=== PATIENT | female | born 1970 | race Two or more races ===

== ENCOUNTER 2021-09-25 14:31 | Emergency (ER) | payer MEDICAID, OTHER ==
[~2021-09-25] VITALS: Ht 162.6 cm; Wt 95.3 kg
[2021-09-25 15:24] VITALS: BP 127/70
[2021-09-25] MEDS ORDERED: IBUP800T27 PO (15:43)
[2021-09-25] MEDS ORDERED: IBUPROFEN 800 MG TAB PO ONE (15:45)
== END 2021-09-25 16:00 | disposition home or self-care (01) ==
LOC: ER 14:31
DX: D17.1 Benign lipomatous neoplasm of skin and subcutaneous tissue of trunk (principal); E11.9 Type 2 diabetes mellitus without complications; Z79.1 Long term (current) use of non-steroidal anti-inflammatories (NSAID); Z88.8 Allergy status to other drugs, medicaments and biological substances
CPT/HCPCS: 71046

== ENCOUNTER 2021-10-13 15:33 | Inpatient (IN) | payer MEDICAID ==
[~2021-10-13] VITALS: Ht 30.5 cm; Wt 97.6 kg
[~2021-10-13 15:33] MED LIST: IBUP800T27 PO
[2021-10-13 15:45] VITALS: BP 132/85
[2021-10-13] MEDS ORDERED: IBUP800T27 PO (16:13)
[2021-10-13] MEDS ORDERED: METF-370 PO (16:13)
[2021-10-13] MEDS ORDERED: TRIH2TAB3 PO (16:13)
[2021-10-13] MEDS ORDERED: PRAM0.12 PO ×3 (16:13→18:19)
[2021-10-13] MEDS ORDERED: DOCUSATE SOD 100 MG CAP PO PRN (16:15)
[2021-10-13] MEDS ORDERED: ACETAMINOPHEN 325 MG TAB PO PRN (16:15)
[2021-10-13] MEDS ORDERED: HYDROcodone-ACET 5/325MG TAB PO PRN (16:15)
[2021-10-13] MEDS ORDERED: ONDANSETRON HCL 4 MG/2 ML VIAL IV PRN (16:15)
[2021-10-13] MEDS ORDERED: DEXTROSE (50%) 50ML SYRG IV PRN (16:15)
[2021-10-13] MEDS ORDERED: LORazepam 0.5 MG TAB PO PRN (16:15)
[2021-10-13] MEDS ORDERED: ALUM & MAG HYDROX-SIMETH LIQ(MAALOX) 30 ML PO PRN (16:15)
[2021-10-13] MEDS ORDERED: HYDROmorphone HCL 2 MG/ML VL/or syr IV PRN (16:15)
[2021-10-13 17:00] VITALS: BP 132/82
[2021-10-13] MEDS: ACCU-CHEK COMFORT CURVE STRIP VI SCH ×2 (17:05→21:11)
[2021-10-13] MEDS: InsuLIN REG 1unit/0.01ml Soln (100units/ml) SC SCH ×2 (17:10→21:12)
[2021-10-13 18:23] LABS: Basophils # (auto) 0.2 10 ^3/uL (0-0.2); Basophils % (auto) 1.6 % (0.0-2.0); Eosinophils # (auto) 0.1 10 ^3/uL (0-0.8); Hematocrit 40.7 % (36.0-46.0); Hemoglobin 13.5 g/dL (12.2-16.2); Lymphocytes # (auto) 2.8 10 ^3/uL (0.4-5.4); Lymphocytes % (auto) 29.1 % (10.0-50.0); Mean Corpuscular Hemoglobin 29.4 pg (28.0-32.0); Mean Corpuscular Hgb Conc. 33.2 g/dL (32.0-36.0); Mean Corpuscular Volume 88.6 fL (80.0-100.0); Monocytes # (auto) 0.5 10 ^3/uL (0-1.3); Monocytes % (auto) 5.7 % (0.0-12.0); Neutrophils % (auto) 62.6 % (37.0-80.0); Red Blood Cells 4.59 10^6/uL (4.0-5.20); Red Cell Distribution Width 13.2 % (11.8-14.3); White Blood Cell 9.6 10^3/uL (4.4-10.8)
[2021-10-13 18:39] LABS: Partial Thromboplastin Time 22.8 sec (23.6-33.0)
[2021-10-13 19:14] LABS: Thyroid Stimulating Hormone 1.1 uIU/mL (0.358-3.74)
[2021-10-13 20:00] LABS: CRP High Sensitivity 0.985 mg/dL (< 0.3)
[2021-10-13 20:29] LABS: BUN/Creatinine Ratio 13.3; Potassium 3.8 mmol/L (3.5-5.1)
[2021-10-13 20:30] LABS: Albumin 3.6 g/dL (3.4-5.0); Bilirubin, Total 0.3 mg/dL (0.2-1.0); Calcium 9.4 mg/dL (8.5-10.1); Magnesium 2.1 mg/dL (1.6-2.6); Phosphorus 3.2 mg/dL (2.5-4.90); Total Protein 8.1 g/dL (6.4-8.2)
[2021-10-13] MEDS: SODIUM CHLOR 0.9% PF (SALINE LOCK) 10ML VIAL/SYR IV SCH (21:11)
[2021-10-13 22:00] VITALS: BP 131/61
[2021-10-14 02:20] LABS: Alcohol, Urine < 3.0 mg/dL (0-10); Amphetamine Screen, Urine NEGATIVE (NEGATIVE); Barbiturate Scree,Urine NEGATIVE (NEGATIVE); Benzodiazephine Screen, Urine NEGATIVE (NEGATIVE); Cannabinoid Screen, Urine NEGATIVE (NEGATIVE); Cocaine Screen, Urine NEGATIVE (NEGATIVE); Opiate Scree,Urine NEGATIVE (NEGATIVE); Phencyclidine Screen, Urine NEGATIVE (NEGATIVE)
[2021-10-14 02:26] LABS: Urine Bacteria FEW /hpf (None Seen); Urine Blood Negative /uL (Negative); Urine Specific Gravity 1.018 (1.001-1.035); Urine WBC 8 /hpf (0 - 5)
[2021-10-14 05:00] VITALS: BP 115/69
[2021-10-14] MEDS ORDERED: cefTRIAXone 1GM/50ML D5W 50 ML IV ONE (05:45)
[2021-10-14 06:01] LABS: BUN/Creatinine Ratio 15.3; Calcium 9.4 mg/dL (8.5-10.1); Potassium 3.6 mmol/L (3.5-5.1)
[2021-10-14] MEDS: SODIUM CHLOR 0.9% PF (SALINE LOCK) 10ML VIAL/SYR IV SCH ×3 (06:17→21:33)
[2021-10-14] MEDS: ACCU-CHEK COMFORT CURVE STRIP VI SCH ×4 (06:18→21:33)
[2021-10-14] MEDS: InsuLIN REG 1unit/0.01ml Soln (100units/ml) SC SCH ×4 (06:20→21:40)
[2021-10-14 09:00] VITALS: BP 100/53
[2021-10-14 13:00] VITALS: BP 137/73
[2021-10-14 16:47] VITALS: BP 125/32
[2021-10-14 16:48] LABS: Folate (Folic Acid) 15.93 ng/mL (5.38-24)
[2021-10-14 20:00] VITALS: BP 119/74
[2021-10-14 23:34] VITALS: BP 119/74
[2021-10-15] MEDS: SODIUM CHLOR 0.9% PF (SALINE LOCK) 10ML VIAL/SYR IV SCH (06:00)
[2021-10-15] MEDS ORDERED: cefTRIAXone 1GM/50ML D5W 50 ML IV SCH (09:00)
[2021-10-15] MEDS: ACCU-CHEK COMFORT CURVE STRIP VI SCH (09:48)
[2021-10-15] MEDS: InsuLIN REG 1unit/0.01ml Soln (100units/ml) SC SCH (09:53)
[2021-10-15 10:06] VITALS: BP 120/70
[2021-10-15] MEDS ORDERED: EMPA1TAB PO (11:59)
[2021-10-15] MEDS ORDERED: CAR25T PO (11:59)
[2021-10-15] MEDS ORDERED: CEFU500T43 PO (11:59)
[2021-10-15] MEDS ORDERED: CARBIDOPA W LEVODOPA 25/100mg TABLET PO ONE (12:00)
[2021-10-15 13:00] VITALS: BP 205/85
[2021-10-15 13:39] VITALS: BP 126/74
== END 2021-10-15 14:00 | disposition home or self-care (01) | DRG 42 ==
LOC: TELE-EAST 15:33 → EAST 16:38
PROVIDERS: ADMIT Internal Medicine; ATTEND Internal Medicine
DX: G20 Parkinson's disease (principal); E11.65 Type 2 diabetes mellitus with hyperglycemia; E66.9 Obesity, unspecified; I10 Essential (primary) hypertension; Z20.822 Contact with and (suspected) exposure to COVID-19; N39.0 Urinary tract infection, site not specified; Z79.84 Long term (current) use of oral hypoglycemic drugs; Z87.442 Personal history of urinary calculi; Z88.7 Allergy status to serum and vaccine
CPT/HCPCS: 36415; 70450; 70551; 71046; 76705; 80048; 80053; 80061; 80307; 81001; 82043; 82306; 82607; 82746; 82962; 83036; 83516; 83735; 83880; 84100; 84439; 84443; 84702; 85025; 85610; 85652; 85730; 86038; 86141; 86225; 86235; 93306; 97163; G0378; J0696; J1815

== ENCOUNTER → 2022-01-18 | Outpatient (CLI) | payer MEDICAID ==
[~2022-01-18] MED LIST changes: +CAR25T PO; +CEFU500T43 PO; +EMPA1TAB PO; +METF-370 PO; +PRAM0.12 PO; +TRIH2TAB3 PO
[2022-01-18 15:38] LABS: Urine Bacteria NONE SEEN /hpf (None Seen); Urine Blood Negative /uL (Negative); Urine WBC 64 /hpf (0 - 5)
== END | disposition home or self-care (01) ==
LOC: LAB 14:51
PROVIDERS: ATTEND Student in an Organized Health Care Education/Training Program
DX: R39.15 Urgency of urination (principal)
CPT/HCPCS: 81001; 82570; 87086

== ENCOUNTER 2023-02-28 13:06 | Inpatient (IN) | payer MEDICAID ==
[~2023-02-28] VITALS: Ht 160 cm; Wt 93.1 kg
[~2023-02-28 13:06] MED LIST changes: +IBUP-1456 PO; -IBUP800T27 PO
[2023-02-28 14:15] LABS: Basophils # (auto) 0.1 10 ^3/uL (0-0.2); Basophils % (auto) 0.9 % (0.0-2.0); Eosinophils # (auto) 0.1 10 ^3/uL (0-0.8); Eosinophils % (auto) 1.3 % (0.0-7.0); Hematocrit 42.1 % (36.0-46.0); Hemoglobin 13.8 g/dL (12.2-16.2); Lymphocytes # (auto) 2.8 10 ^3/uL (0.4-5.4); Lymphocytes % (auto) 31.5 % (10.0-50.0); Mean Corpuscular Hemoglobin 29.3 pg (28.0-32.0); Mean Corpuscular Hgb Conc. 32.7 g/dL (32.0-36.0); Mean Corpuscular Volume 89.6 fL (80.0-100.0); Monocytes # (auto) 0.5 10 ^3/uL (0-1.3); Monocytes % (auto) 5.3 % (0.0-12.0); Neutrophils # (auto) 5.4 10 ^3/uL (1.6-8.6); Nucleated Red Blood Cells % 0.1 %; Red Cell Distribution Width 13.8 % (11.8-14.3); White Blood Cell 8.8 10^3/uL (4.4-10.8)
[2023-02-28 14:32] LABS: Alanine Aminotransferase 53 U/L (7-40); Albumin 4.8 g/dL (3.2-4.8); Alkaline Phosphatase 110 U/L (46-116); Anion Gap 7.8 (5-15); Aspartate Aminotransferase 80 U/L (13-40); BUN/Creatinine Ratio 13.3 (10.0-20.0); Bilirubin, Total 0.4 mg/dL (0.2-1.0); Blood Urea Nitrogen 12 mg/dL (9-23); Calcium 10.4 mg/dL (8.7-10.4); Carbon Dioxide 25.2 mmol/L (20-30); Chloride 101 mmol/L (98-107); Glucose 196 mg/dL (74-106); Lipase 75 U/L (12-53); Potassium 4.1 mmol/L (3.5-5.1); Sodium 134 mmol/L (136-145)
[2023-02-28 14:50] LABS: Lactic Acid w/Reflex 2.8 mmol/L (0.4-2.0)
[2023-02-28 15:13] LABS: Urine Bacteria NONE SEEN /hpf (None Seen); Urine Blood Negative /uL (Negative); Urine Clarity Clear (Clear); Urine Color Yellow (Yellow); Urine Mucus FEW (None Seen); Urine Protein, UAD TRACE (Negative); Urine Specific Gravity 1.026 (1.001-1.035); Urine Urobilinogen Normal (Negative); Urine WBC 62 /hpf (0 - 5); Urine pH 5.5 (5.0-8.0)
[2023-02-28] MEDS ORDERED: SODIUM CHLORIDE 0.9% 1,000 ML IV ONE (15:15)
[2023-02-28 18:07] LABS: COVID19 ANTIGEN SOFIA FIA NEGATIVE (NEGATIVE); Rapid Influenza A Negative (Negative); Rapid Influenza B Negative (Negative)
[2023-02-28] MEDS ORDERED: NITR-87 PO (19:04)
[2023-02-28] MEDS ORDERED: cefTRIAXone 1GM/50ML D5W 50 ML IV ONE (20:15)
[2023-02-28] MEDS ORDERED: ONDANSETRON HCL 4 MG/2 ML VIAL IV PRN (20:30)
[2023-02-28] MEDS ORDERED: AZITHROMYCIN 500MG/ 250ML 250 ML IV ONE (20:30)
[2023-02-28] MEDS ORDERED: DEXTROSE (50%) 50ML SYRG IV PRN (20:30)
[2023-02-28] MEDS ORDERED: MORPHINE SULFATE INJ 2 MG/ml SYRG IV PRN (20:30)
[2023-02-28] MEDS ORDERED: NITROGLYCERIN 0.4 MG SL TAB SL PRN (20:30)
[2023-02-28 21:21] VITALS: PULSE 79; RESP 20; O2SAT 98
[2023-02-28] MEDS: ACCU-CHEK COMFORT CURVE STRIP VI SCH (21:24)
[2023-02-28] MEDS: InsuLIN REG 1unit/0.01ml Soln (100units/ml) SC SCH (21:24)
[2023-02-28] MEDS: CARBIDOPA W LEVODOPA 25/100mg TABLET PO SCH (21:29)
[2023-02-28 22:14] VITALS: PULSE 87; RESP 16; O2SAT 98
[2023-03-01] MEDS ORDERED: SODIUM CHLORIDE 0.9% 1,000 ML IV ONE (01:30)
[2023-03-01 05:52] LABS: Basophils # (auto) 0.1 10 ^3/uL (0-0.2); Basophils % (auto) 0.6 % (0.0-2.0); Eosinophils # (auto) 0.1 10 ^3/uL (0-0.8); Eosinophils % (auto) 1.2 % (0.0-7.0); Hematocrit 35.6 % (36.0-46.0); Hemoglobin 12.2 g/dL (12.2-16.2); Lymphocytes # (auto) 3.5 10 ^3/uL (0.4-5.4); Lymphocytes % (auto) 41.2 % (10.0-50.0); Mean Corpuscular Hemoglobin 30.2 pg (28.0-32.0); Mean Corpuscular Hgb Conc. 34.3 g/dL (32.0-36.0); Mean Corpuscular Volume 88.1 fL (80.0-100.0); Monocytes # (auto) 0.6 10 ^3/uL (0-1.3); Monocytes % (auto) 7.3 % (0.0-12.0); Neutrophils # (auto) 4.2 10 ^3/uL (1.6-8.6); Neutrophils % (auto) 49.7 % (37.0-80.0); Nucleated Red Blood Cells % 0.2 %; Red Blood Cells 4.04 10^6/uL (4.0-5.20); Red Cell Distribution Width 13.7 % (11.8-14.3); White Blood Cell 8.5 10^3/uL (4.4-10.8)
[2023-03-01 06:12] LABS: Alanine Aminotransferase 53 U/L (7-40); Albumin 4.1 g/dL (3.2-4.8); Alkaline Phosphatase 82 U/L (46-116); Anion Gap 5.6 (5-15); Aspartate Aminotransferase 67 U/L (13-40); BUN/Creatinine Ratio 12.5 (10.0-20.0); Blood Urea Nitrogen 10 mg/dL (9-23); Calcium 9.2 mg/dL (8.5-10.1); Carbon Dioxide 26.4 mmol/L (20-30); Chloride 106 mmol/L (98-107); Glucose 161 mg/dL (74-106); Sodium 138 mmol/L (136-145)
[2023-03-01 06:13] LABS: Bilirubin, Total 0.5 mg/dL (0.2-1.0); Total Protein 7.1 g/dL (5.7-8.2)
[2023-03-01] MEDS: InsuLIN REG 1unit/0.01ml Soln (100units/ml) SC SCH ×4 (07:12→21:47)
[2023-03-01] MEDS: CARBIDOPA W LEVODOPA 25/100mg TABLET PO SCH ×4 (07:13→21:39)
[2023-03-01] MEDS: ACCU-CHEK COMFORT CURVE STRIP VI SCH ×4 (07:13→21:39)
[2023-03-01 08:34] VITALS: PULSE 94
[2023-03-01] MEDS: cefTRIAXone 1GM/50ML D5W 50 ML IV SCH (09:23)
[2023-03-01] MEDS: PRAMIPEXOLE DIHYDROCHLORIDE MO 0.25 MG TAB PO SCH (09:24)
[2023-03-01] MEDS: PANTOPRAZOLE 40 MG TAB PO SCH (09:24)
[2023-03-01] MEDS: ENOXAPARIN SOD 40 MG/0.4 ML SYRINGE SC SCH (09:25)
[2023-03-01] MEDS: AZITHROMYCIN 500MG/ 250ML 250 ML IV SCH (10:49)
[2023-03-01] MEDS ORDERED: ROPI1TAB4 PO (11:44)
[2023-03-01] MEDS ORDERED: RASA1TAB4 PO (11:44)
[2023-03-01 12:05] VITALS: BP 98/57; PULSE 90; RESP 20; TEMP 98.7; O2SAT 97
[2023-03-01 16:05] VITALS: BP 121/71; PULSE 90; RESP 18; TEMP 98.6; O2SAT 97
[2023-03-01 17:22] LABS: INR 1.01 (0.9-1.15); Partial Thromboplastin Time 22.4 SEC (24.5-34.5); Prothrombin Time 10.6 sec (9.3-11.8)
[2023-03-01 20:00] VITALS: PULSE 84; PULSE 88; RESP 18
[2023-03-01] MEDS: TRIHEXYPHENIDYL HCL 2 MG PO SCH (21:40)
[2023-03-01] MEDS: ACETAMINOPHEN 325 MG TAB PO PRN (21:46)
[2023-03-01 22:00] VITALS: BP 114/68; PULSE 88; RESP 16; TEMP 98.8; O2SAT 95
[2023-03-02] VITALS (9 sets, daily range): BP systolic 129–143; BP diastolic 65–77; PULSE 86–116; RESP 16–21; TEMP 97.5–98.2; O2SAT 93–97
[2023-03-02] MEDS: TRIHEXYPHENIDYL HCL 2 MG PO SCH ×3 (05:40→22:00)
[2023-03-02] MEDS: CARBIDOPA W LEVODOPA 25/100mg TABLET PO SCH ×4 (06:00→22:16)
[2023-03-02] MEDS: ACCU-CHEK COMFORT CURVE STRIP VI SCH ×4 (06:31→22:17)
[2023-03-02] MEDS: InsuLIN REG 1unit/0.01ml Soln (100units/ml) SC SCH ×4 (06:31→22:00)
[2023-03-02] MEDS ORDERED: GLYCOPYRROLATE 0.2 MG/ML 1ML VIAL ONE (07:01)
[2023-03-02] MEDS ORDERED: PROPOFOL 10 MG/ML 20 ML IV ONE (07:01)
[2023-03-02] MEDS ORDERED: KETOROLAC TROMETH 30 MG/ML 1ML VIAL ONE (07:01)
[2023-03-02] MEDS ORDERED: ONDANSETRON HCL 4 MG/2 ML VIAL ONE (07:01)
[2023-03-02] MEDS ORDERED: LIDOCAINE 2% (LOCAL ANESTH.) PF 5ml SDV ONE (07:01)
[2023-03-02] MEDS ORDERED: DexAMETHasone SOD PHOS 10MG/1ML VIAL INJ ONE (07:01)
[2023-03-02] MEDS ORDERED: fentaNYL CITRATE 100 MCG/2 ML VL ONE (07:02)
[2023-03-02] MEDS ORDERED: LIDOCAINE 2% JELLY 11ml (GLYDO) ONE (07:06)
[2023-03-02] MEDS ORDERED: LIDOCAINE 2%HCL (LOCAL ANESTH.) INJ 10ml MDV ONE (07:06)
[2023-03-02 07:26] LABS: Basophils # (auto) 0 10 ^3/uL (0-0.2); Basophils % (auto) 0.6 % (0.0-2.0); Eosinophils # (auto) 0.1 10 ^3/uL (0-0.8); Eosinophils % (auto) 1.8 % (0.0-7.0); Hematocrit 39.6 % (36.0-46.0); Hemoglobin 13.1 g/dL (12.2-16.2); Lymphocytes # (auto) 3.6 10 ^3/uL (0.4-5.4); Lymphocytes % (auto) 47.6 % (10.0-50.0); Mean Corpuscular Hemoglobin 29.8 pg (28.0-32.0); Mean Corpuscular Hgb Conc. 33.1 g/dL (32.0-36.0); Monocytes # (auto) 0.6 10 ^3/uL (0-1.3); Monocytes % (auto) 8.1 % (0.0-12.0); Neutrophils # (auto) 3.1 10 ^3/uL (1.6-8.6); Neutrophils % (auto) 41.9 % (37.0-80.0); Nucleated Red Blood Cells % 0.1 %; Red Cell Distribution Width 13.9 % (11.8-14.3); White Blood Cell 7.5 10^3/uL (4.4-10.8)
[2023-03-02] MEDS ORDERED: ceFAZolin 1GM/50ML 100 ML IV ONE (07:40)
[2023-03-02 07:54] LABS: Chloride 106 mmol/L (98-107); Potassium 4.3 mmol/L (3.5-5.1); Sodium 139 mmol/L (136-145)
[2023-03-02 07:55] LABS: Anion Gap 6 (5-15); Calcium 9.6 mg/dL (8.5-10.1); Carbon Dioxide 27 mmol/L (20-30)
[2023-03-02 07:59] LABS: Glucose 129 mg/dL (74-106)
[2023-03-02 08:00] LABS: BUN/Creatinine Ratio 11.7 (10.0-20.0); Blood Urea Nitrogen 9 mg/dL (9-23)
[2023-03-02] MEDS ORDERED: ePHEDrine SULFATE 50 MG/ML AMP ONE (08:32)
[2023-03-02] MEDS: ROPINIROLE HYDROCHLORIDE 1 MG PO SCH (10:00)
[2023-03-02] MEDS: ENOXAPARIN SOD 40 MG/0.4 ML SYRINGE SC SCH (11:12)
[2023-03-02] MEDS: cefTRIAXone 1GM/50ML D5W 50 ML IV SCH (11:12)
[2023-03-02] MEDS: PANTOPRAZOLE 40 MG TAB PO SCH (11:12)
[2023-03-02] MEDS: AZITHROMYCIN 500MG/ 250ML 250 ML IV SCH (11:12)
[2023-03-02] MEDS: PRAMIPEXOLE DIHYDROCHLORIDE MO 0.25 MG TAB PO SCH (11:13)
[2023-03-02] MEDS: EMPAGLIFLOZIN 10 MG TAB PO SCH (11:13)
[2023-03-02] MEDS ORDERED: SODIUM CHLORIDE 0.9% 500 ML IV ONE (14:30)
[2023-03-02] MEDS: ACETAMINOPHEN 325 MG TAB PO PRN ×2 (17:23→18:58)
[2023-03-03 05:00] VITALS: BP 130/56; PULSE 90; RESP 18; TEMP 98.1; O2SAT 95
[2023-03-03] MEDS: TRIHEXYPHENIDYL HCL 2 MG PO SCH (05:54)
[2023-03-03] MEDS: CARBIDOPA W LEVODOPA 25/100mg TABLET PO SCH ×2 (06:05→12:01)
[2023-03-03 06:07] LABS: Chloride 103 mmol/L (98-107); Potassium 3.7 mmol/L (3.5-5.1); Sodium 135 mmol/L (136-145)
[2023-03-03 06:08] LABS: Anion Gap 6 (5-15); Calcium 9.9 mg/dL (8.7-10.4); Carbon Dioxide 26 mmol/L (20-30)
[2023-03-03 06:13] LABS: BUN/Creatinine Ratio 17.3 (10.0-20.0); Blood Urea Nitrogen 14 mg/dL (9-23); Glucose 162 mg/dL (74-106)
[2023-03-03] MEDS: ACETAMINOPHEN 325 MG TAB PO PRN (06:14)
[2023-03-03] MEDS: InsuLIN REG 1unit/0.01ml Soln (100units/ml) SC SCH ×2 (06:15→11:57)
[2023-03-03] MEDS: ACCU-CHEK COMFORT CURVE STRIP VI SCH ×2 (06:16→11:58)
[2023-03-03 07:42] LABS: Basophils # (auto) 0.1 10 ^3/uL (0-0.2); Basophils % (auto) 0.5 % (0.0-2.0); Eosinophils # (auto) 0 10 ^3/uL (0-0.8); Hematocrit 39.2 % (36.0-46.0); Lymphocytes # (auto) 2.8 10 ^3/uL (0.4-5.4); Lymphocytes % (auto) 17.5 % (10.0-50.0); Mean Corpuscular Hemoglobin 29.9 pg (28.0-32.0); Mean Corpuscular Hgb Conc. 33.1 g/dL (32.0-36.0); Mean Corpuscular Volume 90.3 fL (80.0-100.0); Monocytes # (auto) 1.1 10 ^3/uL (0-1.3); Monocytes % (auto) 7.2 % (0.0-12.0); Neutrophils # (auto) 11.8 10 ^3/uL (1.6-8.6); Neutrophils % (auto) 74.8 % (37.0-80.0); Nucleated Red Blood Cells % 0.1 %; Red Blood Cells 4.34 10^6/uL (4.0-5.20); Red Cell Distribution Width 14.2 % (11.8-14.3); White Blood Cell 15.8 10^3/uL (4.4-10.8)
[2023-03-03 08:30] VITALS: PULSE 89; PULSE 98; RESP 18
[2023-03-03 09:00] VITALS: BP 112/66; PULSE 75; RESP 20; TEMP 97.7; O2SAT 100
[2023-03-03] MEDS ORDERED: NITR-52 PO (09:41)
[2023-03-03] MEDS: ROPINIROLE HYDROCHLORIDE 1 MG PO SCH (10:00)
[2023-03-03] MEDS ORDERED: AZITHROMYCIN 250 MG TAB PO SCH (10:00)
[2023-03-03] MEDS: ENOXAPARIN SOD 40 MG/0.4 ML SYRINGE SC SCH (10:25)
[2023-03-03] MEDS: PANTOPRAZOLE 40 MG TAB PO SCH (10:26)
[2023-03-03] MEDS: cefTRIAXone 1GM/50ML D5W 50 ML IV SCH (10:26)
[2023-03-03] MEDS: EMPAGLIFLOZIN 10 MG TAB PO SCH (10:26)
[2023-03-03] MEDS: PRAMIPEXOLE DIHYDROCHLORIDE MO 0.25 MG TAB PO SCH (10:26)
[2023-03-03 13:00] VITALS: BP 106/69; PULSE 81; RESP 21; TEMP 98.2; O2SAT 98
== END 2023-03-03 13:23 | disposition home or self-care (01) | DRG 443 ==
LOC: ER 13:06 → TELE 20:45 → TELE-WESTW 03-01 08:07
PROVIDERS: ADMIT Internal Medicine Pulmonary Disease; ATTEND Student in an Organized Health Care Education/Training Program
PROC: 0TC13ZZ Extirpation of Matter from Left Kidney, Percutaneous Approach (ICD-10-PCS; principal; 2023-03-02 08:06)
DX: N13.6 Pyonephrosis (principal); J15.9 Unspecified bacterial pneumonia; G20 Parkinson's disease; E11.65 Type 2 diabetes mellitus with hyperglycemia; Z20.822 Contact with and (suspected) exposure to COVID-19; E66.9 Obesity, unspecified; N20.0 Calculus of kidney; Z88.7 Allergy status to serum and vaccine; Z68.36 Body mass index [BMI] 36.0-36.9, adult
CPT/HCPCS: 36415; 71045; 71250; 74176; 80048; 80053; 81001; 82607; 82962; 83036; 83605; 83690; 84443; 84484; 84702; 85025; 85610; 85730; 86308; 87086; 87426; 87804; 93005; 96365; G0378; J0690; J0696; J1100; J1815; J1885; J2001; J2405; J2704

== ENCOUNTER 2023-05-11 17:46 | Emergency (ER) | payer MEDICAID ==
[~2023-05-11] VITALS: Ht 162.6 cm; Wt 93.8 kg
[~2023-05-11 17:46] MED LIST changes: +NITR-52 PO; +RASA1TAB4 PO; +ROPI1TAB4 PO
[2023-05-11] MEDS ORDERED: KETOROLAC TROMETH 60MG/2ML VIAL IM ONE (18:00)
[2023-05-11] MEDS ORDERED: IBUP-1455 PO (19:30)
[2023-05-11] MEDS ORDERED: ACE3T PO (19:30)
[2023-05-11 21:41] VITALS: BP 115/71; PULSE 83; RESP 14; TEMP 98; O2SAT 98
== END 2023-05-11 21:47 | disposition home or self-care (01) ==
LOC: ER 17:46
DX: M54.16 Radiculopathy, lumbar region (principal); E11.9 Type 2 diabetes mellitus without complications; R20.0 Anesthesia of skin; Z87.442 Personal history of urinary calculi
CPT/HCPCS: 72100; 93970; 96372; 99285; J1885

== ENCOUNTER → 2023-07-13 | Outpatient (CLI) | payer MEDICAID ==
[2023-07-12 15:14] LABS: Urine Epithelial Cast None Seen /hpf (<5)
[2023-07-12 15:20] LABS: Basophils # (auto) 0.1 10 ^3/uL (0-0.2); Basophils % (auto) 1.1 % (0.0-2.0); Eosinophils # (auto) 0.5 10 ^3/uL (0-0.8); Eosinophils % (auto) 4.1 % (0.0-7.0); Hematocrit 40.6 % (36.0-46.0); Hemoglobin 13.3 g/dL (12.2-16.2); Lymphocytes # (auto) 4.5 10 ^3/uL (0.4-5.4); Lymphocytes % (auto) 38.5 % (10.0-50.0); Mean Corpuscular Hemoglobin 28.8 pg (28.0-32.0); Mean Corpuscular Hgb Conc. 32.7 g/dL (32.0-36.0); Mean Corpuscular Volume 88.2 fL (80.0-100.0); Monocytes # (auto) 1.1 10 ^3/uL (0-1.3); Monocytes % (auto) 9.8 % (0.0-12.0); Neutrophils # (auto) 5.4 10 ^3/uL (1.6-8.6); Neutrophils % (auto) 46.5 % (37.0-80.0); Nucleated Red Blood Cells % 0.1 %; Red Cell Distribution Width 13.4 % (11.8-14.3); White Blood Cell 11.6 10^3/uL (4.4-10.8)
[2023-07-12 15:41] LABS: Urine Bacteria NONE SEEN /hpf (None Seen); Urine Blood Negative /uL (Negative); Urine Clarity HAZY (Clear); Urine Color Yellow (Yellow); Urine Protein, UAD TRACE (Negative); Urine Specific Gravity 1.019 (1.001-1.035); Urine Urobilinogen Normal (Negative); Urine WBC 23 /hpf (0 - 5); Urine pH 6.5 (5.0-8.0)
[2023-07-12 16:14] LABS: Partial Thromboplastin Time 30.1 SEC (24.5-34.5); Prothrombin Time 10.5 sec (9.3-11.8)
[2023-07-12 16:45] LABS: Alanine Aminotransferase 40 U/L (7-40); Albumin 4.7 g/dL (3.2-4.8); Alkaline Phosphatase 96 U/L (46-116); Anion Gap 6 (5-15); Aspartate Aminotransferase 51 U/L (13-40); BUN/Creatinine Ratio 13.6 (10.0-20.0); Bilirubin, Total 0.4 mg/dL (0.2-1.0); Blood Urea Nitrogen 11 mg/dL (9-23); Calcium 10.3 mg/dL (8.5-10.1); Carbon Dioxide 28 mmol/L (20-30); Chloride 105 mmol/L (98-107); Glucose 77 mg/dL (74-106); Potassium 3.8 mmol/L (3.5-5.1); Sodium 139 mmol/L (136-145); Total Protein 8.1 g/dL (5.7-8.2)
[~2023-07-13] VITALS: Ht 162.6 cm; Wt 93.4 kg
[~2023-07-13] MED LIST changes: -CEFU500T43 PO; -EMPA1TAB PO; -IBUP-1456 PO; -NITR-52 PO; -PRAM0.12 PO; -RASA1TAB4 PO; -ROPI1TAB4 PO; -TRIH2TAB3 PO
== END | disposition home or self-care (01) ==
LOC: SUR 10:13 → LAB 10:13 → EDSTATUS 11:15
PROVIDERS: ATTEND Urology
DX: N20.0 Calculus of kidney (principal)
CPT/HCPCS: 36415; 80053; 81001; 85025; 85610; 85730; 87086